=== PATIENT | female | born 1970 | race Caucasian/White ===

== ENCOUNTER 2017-02-07 06:50 | Emergency (ER) | payer OTHER ==
[~2017-02-07] VITALS: Ht 160 cm; Wt 70.7 kg
[2017-02-07 06:54] VITALS: Ht 160 cm; Wt 70.7 kg
[2017-02-07] MEDS ORDERED: SODIUM CHLORIDE 0.9% 1000ML 1,000 ML IV STA (07:05)
[2017-02-07 07:12] LABS: BASO % 0.1 %; BASO ABS # 0.01 K/uL (0-0.2); COMPLETE YES; HEMATOCRIT 38.3 % (37-47); IG% 0.1 %; LYMPH % 33.2 %; LYMPH ABS # 2.51 K/uL (1.2-3.4); MEAN CELL VOLUME 89.7 fL (80-100); MEAN CORPUSCULAR HEMOGLOBIN 31.9 pg (25-34); MEAN CORPUSCULAR HGB CONC 35.5 g/dl (32-36); MEAN PLATELET VOLUME 8.7 fL (7.4-10.4); MONO % 7.5 %; NEUT % 57.1 %; PLATELET COUNT 225 K/uL (130-400); RED BLOOD COUNT 4.27 M/uL (4.2-5.4); WHITE BLOOD COUNT 7.55 K/uL (4.8-10.8)
--- NOTE | 2017-02-07 07:17 | EMERGENCY ROOM VISIT NOTE ---
History Report prepared by Cheli: Karmen Wang Under the Supervision of: Dr. Ari Griffin D.O. First contact with patient: 06:55 Chief Complaint: FLANK PAIN Stated Complaint: SEVERE RIGHT SIDE PAIN History of Present Illness The patient is a 46 year old female who presents to the Emergency Room with complaints of constant right flank pain that came on suddenly 1 hour ago, around 0600. The pain started in her right lower quadrant then wrapped around into the right side of her back. She describes the pain as burning. Nothing makes the pain better or worse and the pain is unchanged with movement. The patient took 4 ibuprofen this morning in an attempt to relieve her pain. She is also experiencing nausea but denies vomiting. She also denies cough, shortness of breath, chest pain, and hematuria. The patient states that she has experienced similar in the pain in the past when a cyst ruptured on her right ovary and caused her ovary to become disconnected. Upon review of her chart only previous surgery is for dysfunctional uterine bleeding. She states that she had her right ovary removed emergently after that. The patient still has her gallbladder and appendix. The patient also has a history of 2 sections. Source of History: patient Onset: 1 hour ago, around 0600 Position: other (right flank) Quality: burning Timing: constant Modifying Factors (Worsening): other (None) Modifying Factors (Relieving): other (None) Associated Symptoms: + nausea, No cough, No chest pain, No SOB, No vomiting , No urinary symptoms (hematuria) Review of Systems See HPI for pertinent positives & negatives. A total of 10 systems reviewed and were otherwise negative. Past Medical & Surgical Medical Problems: (1) Acute abdominal pain in right lower quadrant (2) Dermoid cyst of right ovary (3) Ovarian torsion Surgical Problems: (1) History of section (2) History of left oophorectomy Family History No pertinent family history Social History Smoking Status: Current Every Day Smoker Marital Status: single Current/Historical Medications Scheduled PRN Ibuprofen (Motrin), 600 MG PO Q6H PRN for Pain Oxycodone/Acetaminophen 5MG/325MG (Percocet 5MG/325MG), 1 TABLET PO Q4H PRN for Pain Allergies Coded Allergies: No Known Allergies (Unverified , 02/07/17) Physical Exam Vital Signs Date Time Temp Pulse Resp B/P (MAP) Pulse Ox O2 Delivery O2 Flow Rate FiO2 7/27/17 13:40 36.4 65 16 104/54 94 Room Air 02/07/17 13:10 36.7 58 16 100/51 95 Room Air 02/07/17 13:01 36.7 02/07/17 12:58 56 14 95 02/07/17 12:58 58 14 02/07/17 12:56 109/54 02/07/17 12:53 58 13 02/07/17 12:53 59 13 96 02/07/17 12:51 103/46 02/07/17 12:48 52 13 99 02/07/17 12:48 52 13 02/07/17 12:46 104/51 02/07/17 12:43 73 16 96 02/07/17 12:43 73 16 02/07/17 12:41 96/50 02/07/17 12:38 54 12 100 02/07/17 12:38 54 12 02/07/17 12:36 104/50 02/07/17 12:33 58 14 100 02/07/17 12:33 58 14 02/07/17 12:32 81/54 02/07/17 12:32 36.3 59 16 106/43 100 Mask 10 02/07/17 12:30 125/54 02/07/17 10:17 60 17 141/58 98 02/07/17 09:06 60 17 141/58 98 Room Air 02/07/17 07:56 59 16 130/63 97 Room Air 02/07/17 06:54 36.4 61 17 136/37 99 Room Air Physical Exam GENERAL: alert, disheveled, sitting up in bed, well nourished, mild distress, non-toxic EYE EXAM: normal conjunctiva OROPHARYNX: no exudate, no erythema, lips, buccal mucosa, and tongue normal and mucous membranes are moist NECK: supple, no nuchal rigidity, no adenopathy, non-tender LUNGS: Clear to auscultation. Normal chest wall mechanics HEART: no murmurs, S1 normal and S2 normal ABDOMEN: abdomen soft, tender to palpation in right lower quadrant. No rebound or guarding. BACK: Back is symmetrical on inspection and there is no deformity, no midline tenderness, no CVA tenderness. SKIN: no rashes and no bruising PELVIC: Normal vaginal mucosa, cervix closed without drainage, mass with acute tenderness on right adnexa. UPPER EXTREMITIES: upper extremities are grossly normal. LOWER EXTREMITIES: No pitting edema. NEURO EXAM: Normal sensorium, cranial nerves II-XII grossly intact, normal speech, no gross weakness of arms, no gross weakness of legs. 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 Lung bases: Lung bases clear. No pericardial or pleural effusion. Liver: Normal morphology. Normal noncontrast appearance. Biliary: No gross evidence of biliary ductal dilatation allowing for noncontrast technique. Normal gallbladder. Pancreas: Normal. Spleen: Normal. Adrenal glands: Normal. Kidneys and ureters: Possible tiny punctate calculus at the lower pole the right kidney (series 3 image 173). Kidneys otherwise demonstrate normal noncontrast appearance without evidence of hydronephrosis. Gastrointestinal tract: Normal appendix. No bowel obstruction. Normal noncontrast appearance of the bowel. Peritoneal cavity: No free fluid or intraperitoneal gas. Bladder: Incompletely evaluated secondary to underdistention. Pelvic organs: Suggestion of bicornuate uterus. Additionally, fat containing mass in the pelvis measuring 5.8 x 6.2 x 5.4 cm. Additional soft tissue or fluid elements also noted within the mass inferiorly. This is likely within ovarian parenchyma, possibly the left ovary as the left gonadal vein tracks to the lateral aspect of this mass. Vasculature: Atherosclerosis of the normal caliber abdominal aorta. Lymph nodes: No enlarged lymph nodes in the abdomen or pelvis. Abdominal wall: Normal. Musculoskeletal: Normal. IMPRESSION: 1. Fat-containing mass within the pelvis likely within ovarian parenchyma consistent with mature cystic teratoma (dermoid cyst). If there is clinical concern for ovarian torsion, pelvic ultrasound should be obtained. 2. Suggestion of bicornuate uterus. 3. Questionable punctate nonobstructing right renal calculus. Electronically signed by: Moris Cam M.D. 02/07/2017 7:48 AM Dictated Date/Time: 02/07/2017 7:38 AM ULTRASOUND OF THE PELVIS FINDINGS: Uterus: The uterus is bicornuate and measures 1.5 x 4.1 x 9.3 cm. A section scar is suggested on the right. Endometrium: The endometrium is normal in appearance, and the endometrial stripe is normal in thickness measuring up to 1.1 cm within the right horn and 1.0 cm in the left horn Ovaries: The left ovary is not identified and reported surgically absent. The right ovary measures 9.7 x 4.4 x 8.1 cm in anterior dimension. There is a large complex echogenic lesion with small cystic foci measuring 8.5 x 4.4 x 7.5 cm. This is consistent with a large dermoid when correlated with today's pelvic CT. Venous flow is identified. Arterial flow was not clearly seen. Pelvis: There is trace free fluid in the cul-de-sac. IMPRESSION: 1. Bicornuate uterus. 2. A large dermoid is again noted in the right ovary. This was better characterized on today's pelvic CT. 3. Venous flow was shown within the right ovary. Arterial flow was not clearly seen. The appearance is considered low suspicion for ovarian torsion but this cannot be entirely excluded. If there is strong clinical concern for torsion then a gynecologic assessment is recommended. 4. The left ovary is not identified and reported surgically absent. 5. There is trace free fluid in the cul-de-sac. Electronically signed by: Rik Blair M.D. 02/07/2017 9:20 AM Dictated Date/Time: 02/07/2017 9:13 AM Laboratory Results 02/07/17 07:00 Red Blood Count 4.27, Mean Corpuscular Volume 89.7, Mean Corpuscular Hemoglobin 31.9, Mean Corpuscular Hemoglobin Concent 35.5, Mean Platelet Volume 8.7, Neutrophils (%) (Auto) 57.1, Lymphocytes (%) (Auto) 33.2, Monocytes (%) (Auto) 7.5, Eosinophils (%) (Auto) 2.0, Basophils (%) (Auto) 0.1, Neutrophils # (Auto) 4.30, Lymphocytes # (Auto) 2.51, Monocytes # (Auto) 0.57, Eosinophils # (Auto) 0.15, Basophils # (Auto) 0.01 02/07/17 07:00 Test 02/07/17 07:00 02/07/17 07:05 White Blood Count 7.55 K/uL (4.8-10.8) Red Blood Count 4.27 M/uL (4.2-5.4) Hemoglobin 13.6 g/dL (12.0-16.0) Hematocrit 38.3 % (37-47) Mean Corpuscular Volume 89.7 fL (80-100) Mean Corpuscular Hemoglobin 31.9 pg (25-34) Mean Corpuscular Hemoglobin Concent 35.5 g/dl (32-36) Platelet Count 225 K/uL (130-400) Mean Platelet Volume 8.7 fL (7.4-10.4) Neutrophils (%) (Auto) 57.1 % Lymphocytes (%) (Auto) 33.2 % Monocytes (%) (Auto) 7.5 % Eosinophils (%) (Auto) 2.0 % Basophils (%) (Auto) 0.1 % Neutrophils # (Auto) 4.30 K/uL (1.4-6.5) Lymphocytes # (Auto) 2.51 K/uL (1.2-3.4) Monocytes # (Auto) 0.57 K/uL (0.11-0.59) Eosinophils # (Auto) 0.15 K/uL (0-0.5) Basophils # (Auto) 0.01 K/uL (0-0.2) RDW Standard Deviation 44.9 fL (36.4-46.3) RDW Coefficient of Variation 13.7 % (11.5-14.5) Immature Granulocyte % (Auto) 0.1 % Immature Granulocyte # (Auto) 0.01 K/uL (0.00-0.02) Anion Gap 7.0 mmol/L (3-11) Est Creatinine Clear Calc Drug Dose 84.9 ml/min Estimated GFR () 105.7 Estimated GFR (Non- 91.2 BUN/Creatinine Ratio 8.1 (10-20) Calcium Level 8.4 mg/dl (8.5-10.1) Total Bilirubin 0.4 mg/dl (0.2-1) Direct Bilirubin 0.1 mg/dl (0-0.2) Aspartate Amino Transf (AST/SGOT) 11 U/L (15-37) Alanine Aminotransferase (ALT/SGPT) 16 U/L (12-78) Alkaline Phosphatase 45 U/L (45-117) Total Protein 6.5 gm/dl (6.4-8.2) Albumin 3.7 gm/dl (3.4-5.0) Lipase 129 U/L (73-393) Urine Color DK YELLOW Urine Appearance CLEAR (CLEAR) Urine pH 5.0 (4.5-7.5) Urine Specific [place] 1.025 (1.000-1.030) Urine Protein TRACE (NEG) Urine Glucose (UA) NEG (NEG) Urine Ketones 1+ (NEG) Urine Occult Blood 2+ (NEG) Urine Nitrite NEG (NEG) Urine Bilirubin NEG (NEG) Urine Urobilinogen NEG (NEG) Urine Leukocyte Esterase SMALL (NEG) Urine WBC (Auto) 5-10 /hpf (0-5) Urine RBC (Auto) 0-4 /hpf (0-4) Urine Hyaline Casts (Auto) 10-30 /lpf (0-5) Urine Epithelial Cells (Auto) >30 /lpf (0-5) Urine Bacteria (Auto) NEG (NEG) Urine Renal Epithelial Cells /lpf (0-5) Urine Test NEG (NEG) Laboratory results per my review. Medications Administered Medications (Trade) Dose Ordered Sig/Michelle Route Start Time Stop Time Status Last Admin Dose Admin Sodium Chloride 1,000 ml @ 999 mls/hr Q1H1M STAT IV 02/07/17 07:05 02/07/17 08:05 DC 02/07/17 07:15 999 MLS/HR Hydromorphone HCl (Dilaudid Inj) 0.5 mg NOW STAT IV 02/07/17 09:06 02/07/17 09:07 DC 02/07/17 09:21 0.5 MG Ondansetron HCl (Zofran Inj) 4 mg NOW STAT IV 02/07/17 09:06 02/07/17 09:07 DC 02/07/17 09:21 4 MG Bupivacaine HCl (Marcaine 0.5% MPF Inj) 30 ml STK-MED ONCE .ROUTE 02/07/17 10:28 02/07/17 10:29 DC 02/07/17 12:22 30 ML Cefazolin Sodium (Ancef 2000mg/60 ml D5W) 2,000 mg STK-MED ONCE IV 02/07/17 10:32 02/07/17 10:33 DC 02/07/17 10:48 2,000 MG Fentanyl Citrate (Fentanyl Inj) 100 mcg STK-MED ONCE .ROUTE 02/07/17 12:32 02/07/17 12:33 DC 02/07/17 12:40 25 MCG ED Course ED COURSE: Vital signs were reviewed and showed hypertension. The patients medical record was reviewed The above diagnostic studies were performed and reviewed. ED treatments and interventions as stated above. 0659: The patient was evaluated in room A12. A complete history and physical examination was performed. 0705: Ordered Sodium Chloride 1000 ml @ 999 mls/hr IV 0836: I went to reassess the patient but she was at ultrasound. 0906: The patient requested something more for pain. Ordered Zofran Inj 4 mg IV , Dilaudid Inj 0.5 mg IV 0925: I reassessed the patient and performed a pelvic exam. She informed me that her left ovary was the one that was resected, not her right. 0931: I reviewed the patient's case with Dr. Rich - OB-CHIEF COMPLIANCE OFFICER. He will evaluate the patient for further management. 1005: Dr. Rich has evaluated the patient. He is going to take her to the OR. 1007: Upon reevaluation, the patient is resting comfortably.I discussed my findings with the patient and she understands and agrees with the treatment plan. Based on the patients age, coexisting illnesses, exam and lab findings the decision to treat as an inpatient was made. The patient remained stable while under my care. The patient will be evaluated for further management. Medical Decision Differential diagnoses includes but is not limited to gastritis, peptic ulcer disease, GERD, gallbladder disease, pancreatitis, small bowel obstruction, acute coronary syndrome, pericarditis, ischemic bowel, irritable bowel disease, irritable bowel syndrome, appendicitis, diverticulitis, malignancy, hernia, urinary tract infection, torsion, perforation, trauma, infectious. Patient is a 46 year old female who presents the ER for sudden onset of right flank pain one hour ago. Abdominal exam shows minimal tenderness in right lower quadrant. Pelvic has tenderness in right lower quadrant with appreciable mass. Vitals are unremarkable. CBC shows no significant anemia or leukocytosis. Patient initially declined pain medications initially. UA shows hematuria and consequently non-con CT of the abdomen and pelvis was ordered which showed a large right pelvic mass. Later patient changed her story and noted that she had her left ovary removed but still has her right. Ultrasound shows no flow to the right ovary. CHIEF COMPLIANCE OFFICER was called and patient was taken to the OR for right ovarian torsion. Medication Reconcilliation Current Medication List: was personally reviewed by me Blood Pressure Screening Patient's blood pressure: Elevated blood pressure Blood pressure disposition: Elevated BP felt to be situational Consults Time Called: 929 Consulting Physician: Dr. Rich - OB-CHIEF COMPLIANCE OFFICER Returned Call: 930 I reviewed the patient's case with Dr. Rich - OB-CHIEF COMPLIANCE OFFICER. He will evaluate the patient for further management. Impression Primary Impression: Ovarian torsion Additional Impressions: Dermoid cyst of right ovary Acute abdominal pain in right lower quadrant Scribe Attestation The scribe's documentation has been prepared under my direction and personally reviewed by me in its entirety. I confirm that the note above accurately reflects all work, treatment, procedures, and medical decision making performed by me. Departure Information Dispostion Other (Being Evaluated by OB-CHIEF COMPLIANCE OFFICER) Prescriptions Ibuprofen (Motrin) 600 Mg Tab 600 MG PO Q6H Y for Pain, #30 TAB Prov: John Rich, DO 02/07/17 Oxycodone/Acetaminophen 5MG/325MG (PERCOCET 5MG/325MG) Tab 1 TABLET PO Q4H Y for Pain, #20 TAB PAIN Prov: John Rich, 02/07/17 Referrals Vamshi Win M.D. (PCP) Patient Instructions My [facility] Problem Qualifiers
[2017-02-07 07:26] LABS: URINE APPEARANCE CLEAR (CLEAR); URINE BILIRUBIN NEG (NEG); URINE COLOR DK YELLOW; URINE EPITHELIAL CELL AUTO >30 /lpf (0-5); URINE NITRITE NEG (NEG); URINE SPECIFIC GRAVITY 1.025 (1.000-1.030); UROBILINOGEN NEG (NEG); ZZUR CULT IF INDIC CLEAN CATCH NO
[2017-02-07 07:29] LABS: BUN/CREATININE RATIO 8.1 (10-20); CALCIUM 8.4 mg/dl (8.5-10.1); CREATININE 0.78 mg/dl (0.60-1.20); POTASSIUM 3.6 mmol/L (3.5-5.1)
[2017-02-07 07:33] LABS: MANUAL MICROSCOPIC REQUIRED? NO; REVIEW REQ? YES
--- NOTE | 2017-02-07 07:49 | DIAGNOSTIC IMAGING REPORT ---
ABD/PELVIS NO IV OR ORAL CONT CLINICAL HISTORY: 46 years-old Female presenting with r flank pain w/ hematuria, right lower quadrant constant pressure-like pain started at 7:00 AM today, nausea, history of ovarian cysts with rupture . TECHNIQUE: Multidetector CT of the abdomen and pelvis was performed without the use of intravenous contrast. IV contrast: None. A dose lowering technique was used consistent with the principles of ALARA (as low as reasonably achievable). COMPARISON: None. CT DOSE (mGy.cm): The estimated cumulative dose is 563.10 mGy.cm. 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 Lung bases: Lung bases clear. No pericardial or pleural effusion. Liver: Normal morphology. Normal noncontrast appearance. Biliary: No gross evidence of biliary ductal dilatation allowing for noncontrast technique. Normal gallbladder. Pancreas: Normal. Spleen: Normal. Adrenal glands: Normal. Kidneys and ureters: Possible tiny punctate calculus at the lower pole the right kidney (series 3 image 173). Kidneys otherwise demonstrate normal noncontrast appearance without evidence of hydronephrosis. Gastrointestinal tract: Normal appendix. No bowel obstruction. Normal noncontrast appearance of the bowel. Peritoneal cavity: No free fluid or intraperitoneal gas. Bladder: Incompletely evaluated secondary to underdistention. Pelvic organs: Suggestion of bicornuate uterus. Additionally, fat containing mass in the pelvis measuring 5.8 x 6.2 x 5.4 cm. Additional soft tissue or fluid elements also noted within the mass inferiorly. This is likely within ovarian parenchyma, possibly the left ovary as the left gonadal vein tracks to the lateral aspect of this mass. Vasculature: Atherosclerosis of the normal caliber abdominal aorta. Lymph nodes: No enlarged lymph nodes in the abdomen or pelvis. Abdominal wall: Normal. Musculoskeletal: Normal. IMPRESSION: 1. Fat-containing mass within the pelvis likely within ovarian parenchyma consistent with mature cystic teratoma (dermoid cyst). If there is clinical concern for ovarian torsion, pelvic ultrasound should be obtained. 2. Suggestion of bicornuate uterus. 3. Questionable punctate nonobstructing right renal calculus. Electronically signed by: Moris Cam M.D. 02/07/2017 7:48 AM Dictated Date/Time: 02/07/2017 7:38 AM
[2017-02-07] MEDS ORDERED: ONDANSETRON INJ 2 MG/ML 2 ML VIAL IV STA (09:06)
[2017-02-07] MEDS ORDERED: HYDROmorphone INJ 0.5 MG/0.5 ML SYR IV STA (09:06)
--- NOTE | 2017-02-07 09:21 | DIAGNOSTIC IMAGING REPORT ---
ULTRASOUND OF THE PELVIS CLINICAL HISTORY: Right ovarian lesion. COMPARISON STUDY: Pelvic CT dated 02/07/2017. TECHNIQUE: Real-time, grayscale, and color flow sonography of the pelvis is performed both transabdominally and endovaginally. Images are reviewed in the transverse and longitudinal planes. FINDINGS: Uterus: The uterus is bicornuate and measures 1.5 x 4.1 x 9.3 cm. A section scar is suggested on the right. Endometrium: The endometrium is normal in appearance, and the endometrial stripe is normal in thickness measuring up to 1.1 cm within the right horn and 1.0 cm in the left horn Ovaries: The left ovary is not identified and reported surgically absent. The right ovary measures 9.7 x 4.4 x 8.1 cm in anterior dimension. There is a large complex echogenic lesion with small cystic foci measuring 8.5 x 4.4 x 7.5 cm. This is consistent with a large dermoid when correlated with today's pelvic CT. Venous flow is identified. Arterial flow was not clearly seen. Pelvis: There is trace free fluid in the cul-de-sac. IMPRESSION: 1. Bicornuate uterus. 2. A large dermoid is again noted in the right ovary. This was better characterized on today's pelvic CT. 3. Venous flow was shown within the right ovary. Arterial flow was not clearly seen. The appearance is considered low suspicion for ovarian torsion but this cannot be entirely excluded. If there is strong clinical concern for torsion then a gynecologic assessment is recommended. 4. The left ovary is not identified and reported surgically absent. 5. There is trace free fluid in the cul-de-sac. Electronically signed by: Rik Blair M.D. 02/07/2017 9:20 AM Dictated Date/Time: 02/07/2017 9:13 AM
--- NOTE | 2017-02-07 10:02 | History and Physical ---
History & Physical Date & Time of Service: Feb 07, 2017 at 09:53 Chief Complaint: Severe Right Side Pain Primary Care Physician: Vamshi Win M.D. History of Present Illness Source: patient Patient comes in with severe right lower abdominal pain that began at 6 Am this morning. It was sudden on onset and was 10/10. She experienced this one other time more ten years ago at which time she had a left torsed ovary and needed emergent surgery at that time. On arrival to the ER a CT scan showed an enlarged right dermoid cyst measuring approximately 9 cm. An US confirmed the right dermoid cyst but did not show arterial blood flow which is suspicious for a torsion. On exam patient is still in significant pain despite pain medication. We discussed her options to either proceed with surgery now or follow up in the outpatient setting. Due to her continued pain she would like to proceed with surgery now. We discussed the risks of the surgery and informed consent signed for a laparoscopy with RSO and possible laparotomy. Past Medical/Surgical History Surgical Problems: (1) History of section Status: Chronic (2) History of right oophorectomy Status: Chronic Family History No pertinent family history Social History Smoking Status: Current Every Day Smoker Marital Status: single Allergies Coded Allergies: No Known Allergies (Unverified , 07/23/13) Home Medications No Active Prescriptions or Reported Meds Review of Systems Constitutional: No fever, No chills, No sweats, No weight loss, No weakness, No fatigue, No problem reported Respiratory: No cough, No sputum, No wheezing, No shortness of breath, No dyspnea on exertion, No dyspnea at rest, No hemoptysis, No problem reported Cardiovascular: No chest pain, No orthopnea, No PND, No edema, No claudication , No palpitations, No problem reported Abdomen: + pain (right lower abdominal pain) Genitourinary - Female: No dysuria, No urinary frequency, No urinary urgency, No urinary incontinence, No urinary retention, No hematuria, No dysmenorrhea, No menorrhagia, No metrorrhagia, No rash, No vaginal bleeding, No vaginal discharge, No vaginal itching, No vulvodynia, No , No problem reported Integumentary: No rash, No itch, No new/changing skin lesions, No color change , No bleeding, No problem reported Physical Exam Vital Signs Date Time Temp Pulse Resp B/P (MAP) Pulse Ox O2 Delivery O2 Flow Rate FiO2 02/07/17 09:06 60 17 141/58 98 Room Air 02/07/17 07:56 59 16 130/63 97 Room Air 02/07/17 06:54 36.4 61 17 136/37 99 Room Air General Appearance: WD/WN, no apparent distress Respiratory/Chest: chest non-tender, lungs clear Cardiovascular: regular rate, rhythm Abdomen/GI: normal bowel sounds, + tenderness, + guarding Neurologic/Psych: alert, oriented x 3 Skin: normal color, warm/dry, no rash Diagnostics Laboratory Results Results Past 24 Hours Test 02/07/17 07:00 02/07/17 07:05 Range/Units White Blood Count 7.55 4.8-10.8 K/uL Red Blood Count 4.27 4.2-5.4 M/uL Hemoglobin 13.6 12.0-16.0 g/dL Hematocrit 38.3 37-47 % Mean Corpuscular Volume 89.7 80-100 fL Mean Corpuscular Hemoglobin 31.9 25-34 pg Mean Corpuscular Hemoglobin Concent 35.5 32-36 g/dl Platelet Count 225 130-400 K/uL Mean Platelet Volume 8.7 7.4-10.4 fL Neutrophils (%) (Auto) 57.1 % Lymphocytes (%) (Auto) 33.2 % Monocytes (%) (Auto) 7.5 % Eosinophils (%) (Auto) 2.0 % Basophils (%) (Auto) 0.1 % Neutrophils # (Auto) 4.30 1.4-6.5 K/uL Lymphocytes # (Auto) 2.51 1.2-3.4 K/uL Monocytes # (Auto) 0.57 0.11-0.59 K/uL Eosinophils # (Auto) 0.15 0-0.5 K/uL Basophils # (Auto) 0.01 0-0.2 K/uL RDW Standard Deviation 44.9 36.4-46.3 fL RDW Coefficient of Variation 13.7 11.5-14.5 % Immature Granulocyte % (Auto) 0.1 % Immature Granulocyte # (Auto) 0.01 0.00-0.02 K/uL Sodium Level 135 136-145 mmol/L Potassium Level 3.6 3.5-5.1 mmol/L Chloride Level 103 98-107 mmol/L Carbon Dioxide Level 25 21-32 mmol/L Anion Gap 7.0 3-11 mmol/L Blood Urea Nitrogen 6 7-18 mg/dl Creatinine 0.78 0.60-1.20 mg/dl Est Creatinine Clear Calc Drug Dose 84.9 ml/min Estimated GFR () 105.7 Estimated GFR (Non- 91.2 BUN/Creatinine Ratio 8.1 10-20 Random Glucose 114 70-99 mg/dl Calcium Level 8.4 8.5-10.1 mg/dl Total Bilirubin 0.4 0.2-1 mg/dl Direct Bilirubin 0.1 0-0.2 mg/dl Aspartate Amino Transf (AST/SGOT) 11 15-37 U/L Alanine Aminotransferase (ALT/SGPT) 16 12-78 U/L Alkaline Phosphatase 45 45-117 U/L Total Protein 6.5 6.4-8.2 gm/dl Albumin 3.7 3.4-5.0 gm/dl Lipase 129 73-393 U/L Urine Color DK YELLOW Urine Appearance CLEAR CLEAR Urine pH 5.0 4.5-7.5 Urine Specific [place] 1.025 1.000-1.030 Urine Protein TRACE NEG Urine Glucose (UA) NEG NEG Urine Ketones 1+ NEG Urine Occult Blood 2+ NEG Urine Nitrite NEG NEG Urine Bilirubin NEG NEG Urine Urobilinogen NEG NEG Urine Leukocyte Esterase SMALL NEG Urine WBC (Auto) 5-10 0-5 /hpf Urine RBC (Auto) 0-4 0-4 /hpf Urine Hyaline Casts (Auto) 10-30 0-5 /lpf Urine Epithelial Cells (Auto) >30 0-5 /lpf Urine Bacteria (Auto) NEG NEG Urine Renal Epithelial Cells 0-5 /lpf Urine Test NEG NEG Diagnostic Radiology Pelvic US: Uterus: The uterus is bicornuate and measures 1.5 x 4.1 x 9.3 cm. A section scar is suggested on the right. Endometrium: The endometrium is normal in appearance, and the endometrial stripe is normal in thickness measuring up to 1.1 cm within the right horn and 1.0 cm in the left horn Ovaries: The left ovary is not identified and reported surgically absent. The right ovary measures 9.7 x 4.4 x 8.1 cm in anterior dimension. There is a large complex echogenic lesion with small cystic foci measuring 8.5 x 4.4 x 7.5 cm. This is consistent with a large dermoid when correlated with today's pelvic CT. Venous flow is identified. Arterial flow was not clearly seen. Pelvis: There is trace free fluid in the cul-de-sac. IMPRESSION: 1. Bicornuate uterus. 2. A large dermoid is again noted in the right ovary. This was better characterized on today's pelvic CT. 3. Venous flow was shown within the right ovary. Arterial flow was not clearly seen. The appearance is considered low suspicion for ovarian torsion but this cannot be entirely excluded. If there is strong clinical concern for torsion then a gynecologic assessment is recommended. 4. The left ovary is not identified and reported surgically absent. 5. There is trace free fluid in the cul-de-sac. Impression Assessment and Plan (1) Dermoid cyst of right ovary (2) Ovarian torsion (3) Acute abdominal pain in right lower quadrant Will proceed with a laparoscopic RSO possible laparotomy. Informed consent signed.
[2017-02-07] MEDS ORDERED: LACTATED RINGER'S 1000ML 1,000 ML IV SCH (10:03)
[2017-02-07] MEDS ORDERED: ROCURONIUM BROMIDE 10 MG/ML 5 ML VIAL ONE (10:11)
[2017-02-07] MEDS ORDERED: LIDOCAINE HCL 2% 2 ML VIAL (20MG/ML) ONE (10:11)
[2017-02-07] MEDS ORDERED: MIDAZOLAM HCL 1 MG/ML 2ML VIAL ONE (10:11)
[2017-02-07] MEDS ORDERED: PROPOFOL IV EMULSION 10 MG/ML 20 ML VIAL IV ONE (10:11)
[2017-02-07] MEDS ORDERED: FENTANYL CITRATE INJ 50 MCG/1 ML 2 ML VIAL ONE ×3 (10:12→12:32)
[2017-02-07 10:17] VITALS: O2SAT 98
[2017-02-07] MEDS ORDERED: ONDANSETRON INJ 2 MG/ML 2 ML VIAL ONE (10:25)
[2017-02-07] MEDS ORDERED: BUPIVACAINE 0.5 % 5 MG/1 ML MPF 30ML VIAL ONE (10:28)
[2017-02-07] MEDS ORDERED: CEFAZOLIN IV 2,000 MG/60 ML D5W IV ONE (10:32)
[2017-02-07] MEDS ORDERED: FENTANYL CITRATE INJ 50 MCG/1 ML 2 ML VIAL IV PRN (11:00)
[2017-02-07] MEDS ORDERED: EpHEDrine SULFATE INJ 50 MG/ML AMP IV PRN (11:00)
[2017-02-07] MEDS ORDERED: ATROPINE SULFATE 0.1 MG/ML 5ML SYR IV PRN (11:00)
[2017-02-07] MEDS ORDERED: HYDROmorphone INJ 1 MG/ML SYR IV PRN (11:00)
[2017-02-07] MEDS ORDERED: ONDANSETRON INJ 2 MG/ML 2 ML VIAL IV PRN ×2 (11:00→12:30)
[2017-02-07] MEDS ORDERED: PROMETHAZINE HCL INJ 12.5 MG in SODIUM CHLORIDE 0.9% 50ML 50 ML IV PRN (11:00)
[2017-02-07] MEDS ORDERED: DEXAMETHASONE SOD INJ 4 MG/ML VIAL ONE (11:08)
[2017-02-07] MEDS ORDERED: SUCCINYLCHOLINE CHLORIDE 20 MG/ML 10 ML VIAL IV ONE (11:08)
[2017-02-07] MEDS ORDERED: EpHEDrine SULFATE 50MG/5ML SYR ONE (11:08)
[2017-02-07] MEDS ORDERED: ESMOLOL HCL 10 MG/ML 10 ML VIAL ONE (12:16)
[2017-02-07] MEDS ORDERED: IBUP600T44 PO (12:19)
[2017-02-07] MEDS ORDERED: OXYC-57 PO (12:19)
[2017-02-07] MEDS ORDERED: SODIUM CHLORIDE 0.9% 1000ML 1,000 ML IV SCH (12:22)
--- NOTE | 2017-02-07 12:22 | Discharge Instructions ---
Discharge Instructions Date of Service Feb 07, 2017. Visit Reason for Visit: Severe Right Side Pain Discharge Discharge Diagnosis / Problem: Enlarged right dermoid cyst with torsion Discharge Goals Goal(s): Decrease discomfort Activity Recommendations Activity Limitations: per Instructions/Follow-up section Anesthesia . Post Anesthesia Instructions: If you have had General Anesthesia or IV Sedation: * Do not drive today. * Resume driving when surgeon permits. * Do not make important decisions or sign legal documents today. * Call surgeon for: 1. Temperature elevations greater than 101 degrees F. 2. Uncontrollable pain. 3. Excessive bleeding. 4. Persistent nausea and vomiting. 5. Medication intolerance (nausea, vomiting or rash). * For nausea and vomiting use only clear liquids such as: tea, soda, bouillon until nausea subsides, then gradually increase diet as tolerated. * If you have any concerns or questions, call your surgeon's office. If physician is unavailable and it is an emergency, call 911 or go to the nearest emergency room. . Instructions / Follow-Up Instructions / Follow-Up POST OPERATIVE: BOWEL FUNCTION/MEDICATIONS: 1. Constipation pain and discomfort are the most common complaints 5-7 days after surgery. Points 2-6 address the things that can help. 2. Chewing gum can help stimulate the gut and help improve digestion and motility. 3. Milk of Magnesia 1-2 times per day until return of bowel function. 4. Colace is a stool softener that helps. Taking this 2-3 times per day until bowel function returns to normal is highly recommended. 5. Dulcolax is a laxative that may be used if several days have passed without a bowel movement. Alternatively Miralax may be used daily instead. 6. Drink plenty of fluids as this will also reduce constipation. 7. Narcotic pain medications will be prescribed by your physician. They are safe to use and we encourage you to use them. If you are not allergic, ibuprofen will also be prescribed. Many patients will be able to transition off of the narcotic medications to ibuprofen by postoperative day 3. ACTIVITY RECOMMENDATIONS: 1. Get plenty of rest and listen to your body. If you are tired, take a nap. 2. You may shower, but do not take a tub bath until you see your doctor at the 2 week post operative visit. 4. The main physical activity in the first week should be walking. By the second week you can slowly increase activity. There are no limits on walking up and down stairs. 5. Do not lift more than 5-10 lbs for 2 weeks. Remember the "one-handed rule", i.e. if you can lift something with only one hand it's likely okay. 6. Minimize inner tube inserter like vacuuming and exercising for 4 weeks. "Overdoing it" can lead to incisions not healing, pain and vaginal bleeding , so again, listen to your body. 7. Driving can be resumed when you feel able. Do not drive within 24 hours of taking a narcotic medication. EXPECTATIONS: 1. Vaginal spotting, bleeding and discharge are common after surgery. There may even be an odor to the discharge which is often related to sutures used in the vagina. If you experience heavy vaginal bleeding, call the office number day or night [phone]. 2. Bladder discomfort is common after surgery from the catheter. This usually resolves in 1-2 weeks. 3. By the end of the 3rd or 4th week you should be feeling much better. It may take up to 6 weeks for your energy levels to return to normal. 4. Narcotic medications have side effects such as: dizziness, headache, nausea and/or vomiting. If you suspect your pain medication is causing problems, call our office and we may be able to prescribe an alternate medication. 5. The skin incisions are often covered with a liquid bandage. This will gradually peel off over time. CALL THE OFFICE IF YOU HAVE ANY OF THE FOLLOWIN. Temperature of 101 degrees or higher. 2. Severe abdominal or pelvic pain not relieved by pain medication. 3. Persistent nausea or vomiting. 4. Increased pain with urination or difficulty urinating. 5. Bright red bleeding that soaks more than 1 pad per hour. CONTACT PHONE NUMBERS: Main Office: [phone] FOLLOW-UP: Post-Operative Appointments: * Individual instructions will have been given about the timing of your first examination, but this is usually at the end of the second week home. * You will need to call the office at [phone] soon after discharge to make the appointment for your post-op check-up if it has not already been scheduled. * Additional information regarding activity, sexual intercourse and when to return to work will be given at this appointment. WE WISH YOU A SPEEDY RECOVERY! Diet Recommendations Recommended Home Diet: no limitations, resume previous diet Procedures Procedures Performed: Laparoscopic Right salpingo-oopherectomy Pending Studies Studies pending at discharge: no Medical Emergencies . Who to Call and When: Medical Emergencies: If at any time you feel your situation is an emergency, please call 911 immediately. . Non-Emergent Contact Non-Emergency issues call your: Primary Care Provider, Decorating Supervisor . . "Provider Documentation" section prepared by John Rich. . [place] Drug Monitoring Program Search Results: no issues identified
--- NOTE | 2017-02-07 12:27 | [facility] Post Operative Brief Note ---
Immediate Operative Summary Operative Date Feb 07, 2017. Pre-Operative Diagnosis (1) Dermoid cyst of right ovary (2) Ovarian torsion (3) Acute abdominal pain in right lower quadrant Post-Operative Diagnosis Same Procedure(s) Performed Laparoscopic Right salpingo-oopherectomy Surgeon Dr. John Rich Shank Rander Surgeon(s) none Estimated Blood Loss 20ML Findings Upon laparoscopic exam it was noted that she had two uteruses right larger then left. Once the right uterus was lifted it was noted that the right ovary was enlarged and severely torsed with signs of necrosis. The ovary and tube were successfully removed using the ligasure. The specimen was then placed within an endocatch bag. The suprapubic trocar incision had to be extended bilaterally in order to accommodate removal of the specimen. Once the specimen was removed the entire abdomen and pelvis was irrigated noting excellent hemostasis. No other intraabdominal pathology noted. Patient tolerated the procedure well and was sent to recovery with stable vital signs. Fluids (cc crystalloids) 1500 Specimens A. Right Ovary and Fallopian Tube Drains Valle to gravity Anesthesia General Complication(s) None Disposition Recovery Room / PACU
[2017-02-07] MEDS ORDERED: OXYCODONE/ACETAMINOPHEN 5-325 TAB PO PRN ×2 (12:30)
[2017-02-07] MEDS ORDERED: KETOROLAC TROMETHAMINE 30 MG/ML VIAL IV. PRN (12:30)
[2017-02-07] MEDS ORDERED: HYDROmorphone INJ 1 MG/ML SYR ONE (12:31)
--- NOTE | 2017-02-07 13:03 | Anesthesiology Progress Note ---
Anesthesia Post Op Note Date & Time Feb 07, 2017 at 13:02 Vital Signs Pain Intensity: 1 Vital Signs Past 12 Hours Date Time Temp Pulse Resp B/P (MAP) Pulse Ox O2 Delivery O2 Flow Rate FiO2 02/07/17 13:01 36.7 02/07/17 12:58 56 14 95 02/07/17 12:58 58 14 02/07/17 12:56 109/54 02/07/17 12:53 58 13 02/07/17 12:53 59 13 96 02/07/17 12:51 103/46 02/07/17 12:48 52 13 99 02/07/17 12:48 52 13 02/07/17 12:46 104/51 02/07/17 12:43 73 16 96 02/07/17 12:43 73 16 02/07/17 12:41 96/50 02/07/17 12:38 54 12 100 02/07/17 12:38 54 12 02/07/17 12:36 104/50 02/07/17 12:33 58 14 100 02/07/17 12:33 58 14 02/07/17 12:32 81/54 02/07/17 12:32 36.3 59 16 106/43 100 Mask 10 02/07/17 12:30 125/54 02/07/17 10:17 60 17 141/58 98 02/07/17 09:06 60 17 141/58 98 Room Air 02/07/17 07:56 59 16 130/63 97 Room Air 02/07/17 06:54 36.4 61 17 136/37 99 Room Air Notes Mental Status: alert / awake / arousable, participated in evaluation Pt Amnestic to Procedure: Yes Nausea / Vomiting: adequately controlled Pain: adequately controlled Airway Patency, RR, SpO2: stable & adequate BP & HR: stable & adequate Hydration State: stable & adequate Anesthetic Complications: no major complications apparent
--- NOTE | 2017-02-07 13:08 | OPERATIVE REPORT ---
DATE OF OPERATION: 02/07/2017 PREOPERATIVE DIAGNOSES: 1. Acute abdominal pain in the right lower quadrant. 2. Enlarged dermoid cyst of right ovary. 3. Right ovarian torsion. POSTOPERATIVE DIAGNOSES: Same. OPERATIVE PROCEDURE: Laparoscopy with right salpingo-oophorectomy. SURGEON: Dr. John Rich. ENERGY TRADER: None. ANESTHESIA: General. ESTIMATED BLOOD LOSS: 20 mL. IV FLUIDS: 1500 mL crystalloids. URINE OUTPUT: 400 mL clear yellow urine. SPECIMENS: Right ovary and fallopian tube to pathology. DRAINS: Valle to gravity. COMPLICATIONS: None. DISPOSITION: Recovery room. OPERATIVE FINDINGS: Upon laparoscopic exam, it was noted that the patient had 2 uteruses, the right was larger than the left. No left ovary or tube was noted. The patient had a history of previous left salpingo-oophorectomy. Once the right uterus was lifted, it was noted that the right ovary was enlarged and severely torsed with signs of necrosis. Ovary and tube were successfully removed using the LigaSure. The specimen was then placed within its side in an EndoCatch bag. The suprapubic trocar incision had to be extended bilaterally in order to accommodate removal of the specimen. Once the specimen was removed, the entire abdomen and pelvis was irrigated, noting excellent hemostasis. No other intraabdominal or pelvic pathology noted. The patient tolerated the procedure well and was sent to recovery with stable vital signs. OPERATIVE PROCEDURE IN DETAIL: The patient was taken to the operating room, where general anesthesia was administered. Once anesthesia was found to be adequate, the patient was placed in dorsal lithotomy position and was prepped and draped in a manner appropriate for the procedure. A weighted speculum was placed into the vagina. It was noted that the patient had a longitudinal vaginal septum. The cervix on the left side was grasped with a single tooth tenaculum and a [employer] uterine manipulator was placed within the uterus in an anteverted fashion. The weighted speculum was then removed from the vagina. A sterile Valle catheter was placed within the bladder and remained indwelling throughout the entire procedure. Attention was then directed towards the laparoscopic portion of the procedure. Attention was directed towards the abdomen, where 0.5% Marcaine was injected below the umbilicus and an 11-mm skin incision was made subumbilically in a horizontal fashion. A Veress needle was then placed within the incision. Normal saline was injected with no fecal content aspirated. Pneumoperitoneum was then created. The Veress needle was then removed and an 11-mm trocar was placed within the abdomen under direct laparoscopic visualization. The patient was then placed in a Trendelenburg position and the bowel was displaced superiorly away from the pelvis. A second 11-mm skin incision was made 2 fingerbreadths above the pubic symphysis in a horizontal fashion and an 11-mm trocar was placed within the abdomen under direct laparoscopic visualization. A third 5-mm skin incision was made on the right side of the abdomen and a 5-mm trocar was placed within the abdomen under direct laparoscopic visualization. A thorough examination of the abdomen and pelvis was then performed. The right uterus was lifted up noting that the enlarged right dermoid ovarian cyst was torsed severely indicating that necrosis was noted. The right ovary and tube were isolated and the infundibulopelvic ligament was cauterized and transected with the LigaSure, continued inferiorly through the rest of its attachments, completing the entire removal at the uteroovarian ligament. Once the entire specimen was removed, it was placed within side EndoCatch bag. In order to accommodate removal from the abdomen, the suprapubic trocar was removed and the incision was extended bilaterally. The specimen was then removed from the incision. Once the specimen was removed, the fascia of the suprapubic incision was grasped with John clamps and reapproximated with 0 Vicryl suture in a continuous running fashion. The subcutaneous tissue was reapproximated with 2-0 Vicryl suture in continuous running fashion. The skin was then closed with 4-0 Monocryl in a subcuticular fashion. Excellent hemostasis was noted at that incision. Pneumoperitoneum was then recreated and a thorough examination of the abdomen and pelvis was then performed noting excellent hemostasis at removal site of the right ovary and tube. No other intra-abdominal or pelvic pathology was noted. All fluid and blood was aspirated from the pelvis and again excellent hemostasis was noted. All instruments were then removed from the abdomen. As much CO2 gas was allowed to percolate through open cannulas. The cannulas were then moved. The fascia of the umbilical incision was closed with 0 Vicryl suture in a [id number] interrupted fashion. The right incision and this umbilical incision were then closed with 4-0 Monocryl in a subcuticular fashion. Excellent hemostasis was noted at all 3 incisions. The [place] uterine manipulator was removed from the vagina and the Valle catheter was also removed from the bladder. The patient tolerated the procedure well and was sent to recovery with stable vital signs. All sponge and instrument counts were found to be correct x2. I attest to the content of the Intraoperative Record and any orders documented therein. Any exception s are noted below.
[2017-02-07 13:10] VITALS: BP 100/51; PULSE 58; TEMP 36.7; O2SAT 95
[2017-02-07 13:40] VITALS: BP 104/54; PULSE 65; TEMP 36.4; O2SAT 94
[2017-02-07 14:10] VITALS: BP 109/53; PULSE 56; TEMP 36.3; O2SAT 95
[2017-02-08] MEDS ORDERED: CEFAZOLIN IV 2,000 MG in DEXTROSE 5% 50ML 50 ML IV SCH (06:00)
== END 2017-02-07 10:17 | disposition home or self-care (01) ==
LOC: C.EDB 06:51 → C.EDA 10:17
DX: D27.0 Benign neoplasm of right ovary (principal); N83.511 Torsion of right ovary and ovarian pedicle; F17.200 Nicotine dependence, unspecified, uncomplicated; Z90.721 Acquired absence of ovaries, unilateral